=== PATIENT | female | born 2000 | race Caucasian/White ===

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

== ENCOUNTER 2024-01-16 23:19 | Emergency (ER) | payer MEDICAID ==
[~2024-01-16] VITALS: Ht 157.5 cm; Wt 50.0 kg
[~2024-01-16 23:19] MED LIST: GUAI400T92 PO
[2024-01-17] MEDS ORDERED: ibuprofen tablet 400 MG TABLET PO ONE (00:50)
[2024-01-17 01:01] VITALS: BP 122/74; PULSE 84; RESP 16; TEMP 98.2; O2SAT 99
== END 2024-01-17 01:03 | disposition home or self-care (01) ==
LOC: ER 23:19
DX: M25.571 Pain in right ankle and joints of right foot (principal)
CPT/HCPCS: 73610; 99283